=== PATIENT | female | born 1975 | race Two or more races ===

== ENCOUNTER 2017-07-18 04:10 | Emergency (ER) | payer SELFPAY ==
[2017-07-18] MEDS ORDERED: EPINEPHrine 1 MG/ML SDV SUBCUT ONE (04:15)
[2017-07-18] MEDS ORDERED: diphenhydrAMINE 50 MG/ML SDV IM ONE (04:16)
--- NOTE | 2017-07-18 04:22 | EDM.PDOC ---
ED HPI GENERAL MEDICAL PROBLEM - General Chief Complaint: Allergic Reaction Stated Complaint: BEE STING - ALLERGIC Time Seen by Provider: 07/18/17 04:10 Source of Information: Reports: Patient, Family History Limitations: Reports: No Limitations - History of Present Illness INITIAL COMMENTS - FREE TEXT/NARRATIVE: 42-year-old female allergic to bee stings got stung on the right foot within the last hour and started developing burning in her throat and general malaise. No hives or shortness of breath. She has had fairly significant allergic reactions to bee stings in the past. Onset: Sudden Duration: Hour(s): (Within the last half hour) Severity: Moderate Associated Symptoms: Reports: Other (Her only symptom is pain on her foot where she was stung, and intense burning in her throat.). Denies: Fever/Chills, Headaches, Shortness of Breath right foot Pain Score (Numeric/FACES): 5 - Related Data Allergies Allergy/AdvReac Type Severity Reaction Status Date / Time Sulfa (Sulfonamide Allergy Anaphylactic Verified 07/18/17 04:21 Antibiotics) Shock zolpidem [From Ambien] Allergy Hives Verified 07/18/17 04:21 Home Meds: Home Meds NK [No Known Home Meds] 07/18/17 [History] ED ROS ALLERGIC REACTION - Review of Systems Review Of Systems: See Below Constitutional: Denies: Fever, Chills HEENT: Reports: Throat Pain Respiratory: Denies: Shortness of Breath Cardiovascular: Denies: Chest Pain GI/Abdominal: Denies: Nausea, Vomiting Skin: Reports: Erythema (Erythema on the right foot from a recent sting, no hives or rash) Neurological: Reports: No Symptoms Psychiatric: Reports: Anxiety ED EXAM GENERAL NO PERIP PULSE - Physical Exam Exam: See Below Exam Limited By: No Limitations General Appearance: Alert, Anxious, Mild Distress, Other (Patient is extremely anxious) Throat/Mouth: Other (Slight pharyngeal erythema, no significant edema) Head: Atraumatic Respiratory/Chest: No Respiratory Distress, Lungs Clear Extremities: Other (Moderate erythema and slight swelling of the top of the right foot) Neurological: Alert Psychiatric: Anxious Skin Exam: No Rash Course - Vital Signs Last Recorded V/S: Last Vital Signs Temp 97.6 F 07/18/17 04:10 Pulse 89 07/18/17 04:30 Resp 15 07/18/17 04:30 BP 124/71 07/18/17 04:30 Pulse Ox 97 07/18/17 04:30 - Orders/Labs/Meds Meds: Medications Discontinued Medications Generic Name Dose Route Start Last Admin Trade Name Dylon PRN Reason Stop Dose Admin Diphenhydramine HCl 50 mg 07/18/17 04:16 07/18/17 04:29 Benadryl IM 07/18/17 04:17 50 mg ONETIME ONE Administration Epinephrine HCl 0.4 mg 07/18/17 04:15 07/18/17 04:29 Adrenalin SUBCUT 07/18/17 04:16 0.4 mg ONETIME ONE Administration Methylprednisolone Sodium Succinate 125 mg 07/18/17 04:25 07/18/17 04:28 Solu-Medrol IVPUSH 07/18/17 04:26 125 mg ONETIME ONE Administration - Re-Assessments/Exams Free Text/Narrative Re-Assessment/Exam: 07/18/17 04:28 0.4 mg of subcutaneous epinephrine and 50 mg of IM Benadryl were given. An IV was started and the patient was given 125 mg of Solu-Medrol. She remained stable and started to improve. 07/18/17 04:41 Patient's symptoms continued to improve until she was comfortable going home. She was supplied a prescription for EpiPen. She can continue 50 mg of Benadryl every 4-6 hours as needed. Departure - Departure Time of Disposition: 05:02 Disposition: Home, Self-Care 01 Condition: Good Clinical Impression: Allergic reaction to bee sting - Discharge Information Instructions: Allergies, Adult Referrals: PCP,None [Primary Care Provider] - Forms: ED Department Discharge Care Plan Goals: Continue with Benadryl 50 mg every 4-6 hours as needed. Fill EpiPen prescription and use if needed. Return anytime if worsening despite treatment.
[2017-07-18] MEDS ORDERED: methylPREDNISolone Sodium Succinate 125 MG/2 ML SDV IVPUSH ONE (04:25)
== END 2017-07-18 05:04 | disposition home or self-care (01) ==
LOC: JP.ED 04:10
DX: T63.441A Toxic effect of venom of bees, accidental (unintentional), initial encounter (principal)
CPT/HCPCS: 96372; 96374; 99283; J0171; J1200; J2930